=== PATIENT | male | born 1945 | race Caucasian/White ===

== ENCOUNTER 2018-02-17 09:28 | Outpatient (CLI) | payer MEDICARE, SELFPAY ==
[2018-02-17 12:55] LABS: Hemoglobin A1C 6.5 % (4.5-6.2)
== END 2018-02-17 09:48 ==
PROVIDERS: PCP Family Medicine; Visit Provider Family Medicine
DX: E11.9 Type 2 diabetes mellitus without complications (principal)
CPT/HCPCS: 36415; 83036

== ENCOUNTER → 2018-03-11 08:47 | Outpatient (BNVA) | payer MEDICARE, SELFPAY | PROVIDERS: Visit Provider Urology | DX: C67.9 Malignant neoplasm of bladder, unspecified (principal) | CPT/HCPCS: 52000; 99213 ==

== ENCOUNTER 2018-03-11 10:10 | Outpatient (REF) | payer MEDICARE, SELFPAY ==
--- NOTE | 2018-03-11 09:00 | PAPNONF_PTH ---
PATIENT: Sal Coronel LOC: [facility] U#:[id number] AGE/SX: 73/M ROOM: RE03/11/[address]: Lorenzo Wild MD : 1945 BED: DIS: 03/11/2018 SPEC #: [id number] RECD: 03/11/18 13:05 STATUS: SANA REQ #: [id number] VU: 03/11/18 09:[address]: Lorenzo Wild DEPT: [facility] Cytology RECD BY: Tami Guerin ENTERED: 03/11/18 13:05 SP TYPE: KHURRAM MUNOZ DR: Silverio Ibarra MD Tissues: 1 - BODY FLUID CYTO(SPUTUM/URINE)[facility] Procedures: BODY FLUID CYTO(URINE/SPUTUM) Comments: [id number] (TOTAL VOLUME = 60 ml's) (30 ml's URINE & 30 ml's CYTOLYT ADDED IN 2 CONTAINERS)
== END 2018-03-11 10:30 ==
LOC: LBN 10:10
PROVIDERS: PCP Family Medicine; Visit Provider Urology
DX: C67.9 Malignant neoplasm of bladder, unspecified (principal)
CPT/HCPCS: 88104

== ENCOUNTER 2018-07-01 14:03 | Outpatient (CLI) | payer MEDICARE, SELFPAY ==
[2018-07-01 15:13] LABS: Hemoglobin A1C 7.4 % (4.5-6.2)
[2018-07-01 15:34] LABS: ALT 34 U/L (12-78); AST 16 U/L (15-37); Albumin 3.9 g/dL (3.4-5.0); Alkaline Phosphatase 120 U/L (46-116); Anion Gap 13.5 mmol/L (3-11); BUN 22 mg/dL (7-18); Bilirubin, Total 0.5 mg/dL (0.2-1.0); CO2 22.5 mmol/L (21.0-32.0); CREATININE 1.26 mg/dL (0.70-1.30); Calcium 9.3 mg/dL (8.5-10.1); Chloride 103 mmol/L (98-107); Cholesterol 185 mg/dL (50-200); Estimated GFR 55.94 (mL/min/1.73m2); Glucose 272 mg/dL (70-100); HDL Cholesterol 47 mg/dL (40-60); LDL CHOLESTEROL 90 mg/dL (<100); Potassium 4.5 mmol/L (3.5-5.1); Sodium 139 mmol/L (136-145); Total Protein 7.5 g/dL (6.4-8.2); Triglyceride 391 mg/dL (30-150)
== END 2018-07-01 14:23 ==
PROVIDERS: PCP Family Medicine; Visit Provider Family Medicine
DX: E11.42 Type 2 diabetes mellitus with diabetic polyneuropathy (principal)
CPT/HCPCS: 36415; 80053; 80061; 83721; 83036

== ENCOUNTER → 2018-07-15 14:17 | Outpatient (BNVA) | payer MEDICARE, SELFPAY | PROVIDERS: PCP Family Medicine; Visit Provider Urology | DX: C67.9 Malignant neoplasm of bladder, unspecified (principal) | CPT/HCPCS: 52000; 99213 ==

== ENCOUNTER 2018-07-15 16:01 | Outpatient (REF) | payer MEDICARE, SELFPAY ==
--- NOTE | 2018-07-15 15:00 | PAPNONF_PTH ---
PATIENT: Sal Coronel LOC: [facility] U#:[id number] AGE/SX: 73/M ROOM: RE07/15/[address]: Lorenzo Wild MD : 1945 BED: DIS: 07/15/2018 SPEC #: [id number] RECD: 07/15/18 17:35 STATUS: SANA SIBLEY #: [id number] VU: 07/15/18 15:[address]: Lorenzo Wild DEPT: [facility] Cytology RECD BY: Tami Guerin ENTERED: 07/15/18 17:36 SP TYPE: KHURRAM MUNOZ DR: Silverio Ibarra MD Tissues: 1 - BODY FLUID CYTO(SPUTUM/URINE)[facility] Procedures: BODY FLUID CYTO(URINE/SPUTUM) Comments: [id number] (TOTAL VOLUME = 55 ml's) (55 ml's BLADDER WASHINGS & 55 ml'S CYTOLYT ADDED)
== END 2018-07-15 16:21 ==
LOC: LBN 16:01
PROVIDERS: PCP Family Medicine; Visit Provider Urology
DX: C67.9 Malignant neoplasm of bladder, unspecified (principal)
CPT/HCPCS: 88104

== ENCOUNTER → 2019-01-19 09:53 | Outpatient (BNVA) | payer MEDICARE, SELFPAY | PROVIDERS: PCP Family Medicine; Visit Provider Urology | DX: R35.0 Frequency of micturition (principal); Z85.51 Personal history of malignant neoplasm of bladder | CPT/HCPCS: 52000; 99212 ==

== ENCOUNTER 2019-01-19 14:45 | Outpatient (REF) | payer MEDICARE, SELFPAY ==
--- NOTE | 2019-01-19 10:30 | PAPNONF_PTH ---
PATIENT: Sal Coronel LOC: [facility] U#:[id number] AGE/SX: 73/M ROOM: RE01/19/[address]: Lorenzo Wild MD : 1945 BED: DIS: 01/19/2019 SPEC #: [id number] RECD: 01/19/19 18:08 STATUS: SANA REQ #: [id number] VU: 01/19/19 10:[address]: Lorenzo Wild DEPT: [facility] Cytology RECD BY: Tami Guerin ENTERED: 01/19/19 18:08 SP TYPE: KHURRAM MUNOZ DR: Silverio Ibarra MD Tissues: 1 - BODY FLUID CYTO(SPUTUM/URINE)[facility] Procedures: BODY FLUID CYTO(URINE/SPUTUM) Comments: [id number] (TOTAL VOLUME = 40 ml's) (40 ml's URINE & 40 ml's CYTOLYT ADDED)
== END 2019-01-19 15:05 ==
LOC: LBN 14:45
PROVIDERS: PCP Family Medicine; Visit Provider Urology
DX: R82.8 Abnormal findings on cytological and histological examination of urine (principal); R82.998 Other abnormal findings in urine; Z85.51 Personal history of malignant neoplasm of bladder
CPT/HCPCS: 88104

== ENCOUNTER 2019-06-30 12:23 | Outpatient (CLI) | payer MEDICARE, SELFPAY ==
[2019-06-30 14:10] LABS: ALT 37 U/L (16-63); AST 14 U/L (15-37); Albumin 4.2 g/dL (3.4-5.0); Alkaline Phosphatase 80 U/L (46-116); Anion Gap 11.8 mmol/L (3-11); BUN 25 mg/dL (7-18); Bilirubin, Total 0.5 mg/dL (0.2-1.0); CO2 24.2 mmol/L (21.0-32.0); CREATININE 1.16 mg/dL (0.70-1.30); Chloride 102 mmol/L (98-107); Glucose 169 mg/dL (74-106); Potassium 4.8 mmol/L (3.5-5.1); Sodium 138 mmol/L (136-145); Total Protein 7.5 g/dL (6.4-8.2)
== END 2019-06-30 12:43 ==
PROVIDERS: PCP Family Medicine; Visit Provider Family Medicine
DX: E11.42 Type 2 diabetes mellitus with diabetic polyneuropathy (principal)
CPT/HCPCS: 36415; 80053

== ENCOUNTER 2020-05-29 03:06 | Outpatient (CLI) | payer MEDICARE, SELFPAY ==
[2020-05-29 13:04] LABS: HCT 45.3 % (40.0-50.0); HGB 15.3 g/dL (13.5-17.5); MCH 33.8 pg (27.0-33.0); MCHC 33.8 % (32.0-36.0); MCV 100.2 fL (80-95); MPV 9.3 fL (8.0-11.0); Platelet Count 293 10^3/uL (130-400); RBC 4.52 10^6/uL (4.36-5.78); RDW 11.4 % (11.8-14.1); RDW-SD 41.5 fL; WBC 7.92 10^3/uL (4.4-10.8)
[2020-05-29 13:53] LABS: COMMENT (LAB VIEW ONLY) 125.39 mg/dL
[2020-05-29 13:54] LABS: ALT 37 U/L (16-63); AST 15 U/L (15-37); Albumin 4.2 g/dL (3.4-5.0); Alkaline Phosphatase 73 U/L (46-116); Anion Gap 8.8 mmol/L (3-11); BUN 24 mg/dL (7-18); Bilirubin, Total 0.7 mg/dL (0.2-1.0); CO2 26.2 mmol/L (21.0-32.0); CREATININE 1.41 mg/dL (0.70-1.30); Calculated LDL 85 mg/dL (<100); Chloride 98 mmol/L (98-107); Cholesterol 186 mg/dL (<200); Estimated GFR 48.87 (mL/min/1.73m2); Glucose 200 mg/dL (74-106); HDL Cholesterol 54 mg/dL (40-60); Microalb ug/mg Crea 110.5 ug/mg Cr; Potassium 4.9 mmol/L (3.5-5.1); Sodium 133 mmol/L (136-145); TSH (W/Ref FT4) 1.78 uIU/mL (0.36-3.74); Total Protein 7.8 g/dL (6.4-8.2); Triglyceride 236 mg/dL (<150)
== END 2020-05-29 03:26 ==
PROVIDERS: PCP Family Medicine; Visit Provider Family Medicine
DX: E11.42 Type 2 diabetes mellitus with diabetic polyneuropathy (principal); E78.5 Hyperlipidemia, unspecified; I10 Essential (primary) hypertension; C67.9 Malignant neoplasm of bladder, unspecified
CPT/HCPCS: 36415; 80053; 80061; 85027; 82043; 82570; 84443

== ENCOUNTER 2022-03-19 14:42 | Outpatient (REF) | payer MEDICARE, SELFPAY ==
[2022-03-19 20:28] LABS: CREATININE 1.4 mg/dL (0.70-1.30); Estimated GFR 51.45 (mL/min/1.73m2); Potassium 4.4 mmol/L (3.5-5.1)
== END 2022-03-19 14:43 | disposition home or self-care (01) ==
LOC: LBN 14:42
PROVIDERS: PCP Nurse Practitioner Family; Visit Provider Nurse Practitioner Family
DX: I10 Essential (primary) hypertension (principal)
CPT/HCPCS: 82565; 84132

== ENCOUNTER 2022-09-16 22:04 | Outpatient (REF) | payer MEDICARE, SELFPAY ==
[2022-09-16 22:40] LABS: COMMENT (LAB VIEW ONLY) 79.59 mg/dL; Microalb ug/mg Crea 14.7 ug/mg Cr
== END 2022-09-16 22:05 | disposition home or self-care (01) ==
LOC: LBN 22:04
PROVIDERS: PCP Nurse Practitioner Family; Visit Provider Nurse Practitioner Family
DX: E11.42 Type 2 diabetes mellitus with diabetic polyneuropathy (principal)
CPT/HCPCS: 82043; 82570

== ENCOUNTER 2022-09-22 03:03 | Outpatient (CLI) | payer MEDICARE, SELFPAY | END 2022-09-22 03:04 | disposition home or self-care (01) | LOC: LBO 03:03 | PROVIDERS: PCP Nurse Practitioner Family; Visit Provider Nurse Practitioner Family | DX: E11.42 Type 2 diabetes mellitus with diabetic polyneuropathy (principal) | CPT/HCPCS: 36415; 83036 ==

== ENCOUNTER 2023-02-10 15:14 | Outpatient (REF) | payer MEDICARE, SELFPAY | END 2023-02-10 15:15 | disposition home or self-care (01) | LOC: LBN 15:14 | PROVIDERS: PCP Nurse Practitioner Family; Visit Provider Nurse Practitioner Family | DX: R35.0 Frequency of micturition (principal) | CPT/HCPCS: 87086 ==

== ENCOUNTER 2023-11-22 12:44 | Outpatient (REF) | payer MEDICARE, SELFPAY ==
--- NOTE | 2023-11-22 11:30 | SKI_PTH ---
PATIENT: Sal Coronel LOC: [facility] U#:[id number] AGE/SX: 78/M ROOM: RE11/22/[address]: Clyde Vargas MD : 1945 BED: DIS: 11/22/2023 SPEC #: [id number] RECD: 11/22/23 17:57 STATUS: SANA REQ #: [id number] VU: 11/22/23 11:[address]: Clyde Vargas DEPT: Surgical Specimen RECD BY: Tami Guerin ENTERED: 11/22/23 17:58 SP TYPE: CURTIS MUNOZ DR: Reji Riggins, NNAMDI Tissues: 1 - SKIN BIOPSY(SHAVE/PUNCH) Procedures: SKIN LEVEL 4 Comments: [id number]
== END 2023-11-22 12:45 | disposition home or self-care (01) ==
LOC: LBN 12:44
PROVIDERS: PCP Nurse Practitioner Family; Visit Provider Otolaryngology
DX: L98.9 Disorder of the skin and subcutaneous tissue, unspecified (principal)
CPT/HCPCS: 88305